=== PATIENT | male | born 1935 | race Caucasian/White ===

== ENCOUNTER 2017-10-26 10:09 | Inpatient (IN) | payer MEDICARE ==
[~2017-10-26] VITALS: Ht 190.5 cm; Wt 64.9 kg
[2017-10-26 10:52] LABS: BASOPHILS # (AUTO) 0.02 x10^3/uL (0-0.1); BASOPHILS % (AUTO) 0 % (0-1); EOSINOPHILS % (AUTO) 0 % (1-7); LYMPHOCYTES # (AUTO) 0.37 x10^3/uL (1-3.4); LYMPHOCYTES % (AUTO) 3 % (22-44); MD NO; MEAN CORPUSCULAR HEMOGLOBIN 31.6 pg (27.5-34.5); MEAN CORPUSCULAR HGB CONC 33.8 g/dL (33.2-36.2); MEAN CORPUSCULAR VOLUME 93.7 fL (81-97); MEAN PLATELET VOLUME 8.4 fL (7.4-10.4); MONOCYTES # (AUTO) 0.68 x10^3/uL (0.2-0.8); MONOCYTES % (AUTO) 5 % (2-9); NEUTROPHILS # (AUTO) 11.65 x10^3/uL (1.8-6.8); NEUTROPHILS % (AUTO) 92 % (42-75); PLATELET COUNT 204 x10^3/uL (130-400); RED BLOOD COUNT 4.19 x10^6/uL (4.38-5.82); RED CELL DISTRIBUTION WIDTH 13.3 % (9.4-14.8)
[2017-10-26 10:59] LABS: INTERNATIONAL NORMALIZED RATIO 1.03 (0.93-1.1); PROTHROMBIN TIME 10.7 Seconds (9.6-11.5)
[2017-10-26 11:03] LABS: ALANINE AMINOTRANSFERASE 21 U/L (12-78); ALBUMIN 2.6 g/dL (3.4-5.0); ANION GAP 7 mmol/L (5-15); CALCIUM 9.2 mg/dL (8.5-10.1); CHLORIDE 108 mmol/L (98-107); CREATININE 1.02 mg/dL (0.7-1.3)
[2017-10-26 11:08] LABS: ALKALINE PHOSPHATASE 45 U/L (45-117); BILIRUBIN,TOTAL 0.9 mg/dL (0.2-1.0)
[2017-10-26 11:15] LABS: TROPONIN I 0.317 ng/mL (0.000-0.045)
[2017-10-26] MEDS ORDERED: FUROSEMIDE 20 MG/2 ML IV ONE (11:30)
[2017-10-26] MEDS ORDERED: PIPERACILLIN/TAZO/PMX 4.5GM 100 ML IV ONE (11:30)
[2017-10-26] MEDS ORDERED: FUROSEMIDE 20 MG/2 ML ONE (11:34)
[2017-10-26] MEDS ORDERED: OMNIPAQUE 350 MG/ML, 100ML BOTTLE ONE (12:05)
[2017-10-26 13:59] VITALS: BP 153/83
[2017-10-26] MEDS ORDERED: ENOXAPARIN 40 MG/0.4 ML SQ SCH (14:30)
[2017-10-26] MEDS ORDERED: ENALAPRILAT 1.25 MG/ML, 2ML IVPush PRN (14:30)
[2017-10-26] MEDS ORDERED: LABETALOL 5MG/ML, 20ML IVPush PRN (14:30)
[2017-10-26] MEDS ORDERED: hydrALAzine 20 MG/ML, 1ML IVPush PRN (14:30)
[2017-10-26] MEDS: METOCLOPRAMIDE 5 MG/ML, 2ML IVPush SCH ×3 (14:30→21:41)
[2017-10-26] MEDS ORDERED: ACETAMINOPHEN 325 MG TABLET PO PRN (14:30)
[2017-10-26] MEDS ORDERED: NITROGLYCERIN 0.4 MG BOTTLE (25 TABS) SL PRN (14:30)
[2017-10-26] MEDS ORDERED: POTASSIUM CHLORIDE 40 MEQ in SODIUM CHLORIDE 0.9% 500 ML IV ONE (15:00)
[2017-10-26 15:09] LABS: TROPONIN I 0.323 ng/mL (0.000-0.045)
[2017-10-26] MEDS ORDERED: SUCR1TAB PO (16:07)
[2017-10-26] MEDS ORDERED: OMEP-110 PO (16:07)
[2017-10-26] MEDS ORDERED: ASPI-621 PO (16:07)
[2017-10-26] MEDS ORDERED: IRBE150T25 PO (16:07)
[2017-10-26] MEDS ORDERED: NIAC500C3 PO (16:07)
[2017-10-26] MEDS ORDERED: GLIP5TAB22 PO (16:07)
[2017-10-26] MEDS ORDERED: TRIA1TAB5 PO (16:07)
[2017-10-26] MEDS ORDERED: TERA5CAP3 PO (16:07)
[2017-10-26] MEDS ORDERED: VERA240T86 PO (16:07)
[2017-10-26] MEDS ORDERED: METO5TAB57 PO (16:19)
[2017-10-26 16:20] LABS: MICROSCOPIC AUTO
[2017-10-26 16:27] LABS: CULTURE INDICATED? NO
[2017-10-26] MEDS ORDERED: METOPROLOL TARTRATE 25 MG TABLET PO SCH (16:30)
[2017-10-26] MEDS ORDERED: MAGNESIUM SULFATE PMX 2GM/50ML 50 ML IV ONE (16:30)
[2017-10-26] MEDS: FUROSEMIDE 40 MG/4 ML IV SCH (17:12)
[2017-10-26] MEDS ORDERED: RIVAROXABAN 20 MG TABLET PO SCH (18:00)
[2017-10-26 20:12] VITALS: BP 193/87
[2017-10-26 20:27] LABS: TROPONIN I 0.319 ng/mL (0.000-0.045)
[2017-10-26] MEDS: POTASSIUM CHLORIDE 20 MEQ TAB.ER.PRT PO SCH ×2 (21:30→21:40)
[2017-10-26] MEDS ORDERED: VERAPAMIL ER 240MG TABLET.ER ONE (21:32)
[2017-10-26] MEDS: VERAPAMIL ER 120MG TABLET.ER PO SCH (21:37)
[2017-10-26] MEDS: GLIPizide ER 5 MG TABLET PO SCH (21:37)
[2017-10-26] MEDS: TERAZOSIN 5MG CAPSULE PO SCH (21:38)
[2017-10-26] MEDS: NIACIN 500 MG TABLET.ER PO SCH (21:38)
[2017-10-26] MEDS: IRBESARTAN 150 MG TABLET PO SCH (21:39)
[2017-10-26] MEDS: FAMOTIDINE 20 MG/2 ML IVPush SCH (21:41)
[2017-10-27] MEDS: POTASSIUM CHLORIDE 10% 40 MEQ/30 ML UDC PO SCH ×4 (00:21→20:06)
[2017-10-27 03:15] VITALS: BP 177/83
[2017-10-27 03:55] VITALS: BP 163/81
[2017-10-27 05:47] LABS: BASOPHILS # (AUTO) 0.02 x10^3/uL (0-0.1); BASOPHILS % (AUTO) 0 % (0-1); EOSINOPHILS % (AUTO) 0 % (1-7); LYMPHOCYTES # (AUTO) 0.66 x10^3/uL (1-3.4); LYMPHOCYTES % (AUTO) 7 % (22-44); MD NO; MEAN CORPUSCULAR HEMOGLOBIN 31.2 pg (27.5-34.5); MEAN CORPUSCULAR HGB CONC 33.5 g/dL (33.2-36.2); MEAN CORPUSCULAR VOLUME 93.1 fL (81-97); MEAN PLATELET VOLUME 8.7 fL (7.4-10.4); MONOCYTES # (AUTO) 0.68 x10^3/uL (0.2-0.8); MONOCYTES % (AUTO) 7 % (2-9); NEUTROPHILS # (AUTO) 7.78 x10^3/uL (1.8-6.8); NEUTROPHILS % (AUTO) 85 % (42-75); PLATELET COUNT 211 x10^3/uL (130-400); RED BLOOD COUNT 4.41 x10^6/uL (4.38-5.82); RED CELL DISTRIBUTION WIDTH 13.2 % (9.4-14.8)
[2017-10-27 05:55] LABS: ANION GAP 9 mmol/L (5-15); CALCIUM 9.1 mg/dL (8.5-10.1); CHLORIDE 103 mmol/L (98-107); CREATININE 1.09 mg/dL (0.7-1.3)
[2017-10-27] MEDS ORDERED: ASPIRIN 325 MG TABLET EC PO SCH (06:00)
[2017-10-27] MEDS: METOCLOPRAMIDE 5 MG/ML, 2ML IVPush SCH ×5 (06:01→20:06)
[2017-10-27 07:32] VITALS: BP 135/82
[2017-10-27] MEDS ORDERED: MAGNESIUM SULFATE 4 GM in SODIUM CHLORIDE 0.9% 100 ML IV ONE (08:00)
[2017-10-27] MEDS: FUROSEMIDE 40 MG/4 ML IV SCH (08:07)
[2017-10-27] MEDS: IRBESARTAN 150 MG TABLET PO SCH ×2 (08:07→20:06)
[2017-10-27] MEDS: VERAPAMIL ER 120MG TABLET.ER PO SCH ×2 (08:07→20:06)
[2017-10-27] MEDS: TRIAMTERENE/HCTZ 75/50MG TABLET PO SCH (08:08)
[2017-10-27] MEDS: METOPROLOL TARTRATE 25 MG TABLET PO SCH ×2 (08:08→20:06)
[2017-10-27] MEDS: TERAZOSIN 5MG CAPSULE PO SCH ×2 (08:08→20:05)
[2017-10-27] MEDS: GLIPizide ER 5 MG TABLET PO SCH ×2 (08:08→20:05)
[2017-10-27] MEDS: FAMOTIDINE 20 MG/2 ML IVPush SCH ×2 (08:28→20:05)
[2017-10-27] MEDS ORDERED: OMEPRAZOLE 20 MG CAPSULE.DR PO SCH (09:00)
[2017-10-27] MEDS: POTASSIUM CHLORIDE 40 MEQ in LACTATED RINGERS 1,000 ML IV SCH ×2 (09:04→22:14)
[2017-10-27] MEDS ORDERED: MAGNESIUM SULFATE PMX 4GM/100M 100 ML IVPB ONE (09:30)
[2017-10-27] MEDS: INSULIN LISPRO 100 UNITS/ML, PEN SQ-INSULIN SCH ×3 (11:00→21:26)
[2017-10-27 12:47] VITALS: BP 127/74
[2017-10-27 12:51] VITALS: BP 116/63
[2017-10-27 13:46] LABS: HEMOGLOBIN A1C 7.3 % (4.2-6.3)
[2017-10-27] MEDS: NIACIN 500 MG TABLET.ER PO SCH (20:05)
[2017-10-27] MEDS: ONDANSETRON 2MG/ML, 2ML IVPush PRN (20:06)
[2017-10-27 21:03] VITALS: BP 125/71
[2017-10-28 00:45] VITALS: BP 153/81
[2017-10-28 05:24] LABS: BASOPHILS # (AUTO) 0.05 x10^3/uL (0-0.1); BASOPHILS % (AUTO) 1 % (0-1); EOSINOPHILS # (AUTO) 0.03 x10^3/uL (0-0.4); EOSINOPHILS % (AUTO) 0 % (1-7); LYMPHOCYTES % (AUTO) 12 % (22-44); MD NO; MEAN CORPUSCULAR HEMOGLOBIN 30.8 pg (27.5-34.5); MEAN CORPUSCULAR HGB CONC 32.9 g/dL (33.2-36.2); MEAN CORPUSCULAR VOLUME 93.8 fL (81-97); MEAN PLATELET VOLUME 8.5 fL (7.4-10.4); MONOCYTES % (AUTO) 9 % (2-9); NEUTROPHILS # (AUTO) 5.47 x10^3/uL (1.8-6.8); NEUTROPHILS % (AUTO) 79 % (42-75); PLATELET COUNT 176 x10^3/uL (130-400); RED BLOOD COUNT 3.85 x10^6/uL (4.38-5.82); RED CELL DISTRIBUTION WIDTH 13.4 % (9.4-14.8)
[2017-10-28 05:30] LABS: ALBUMIN 2.2 g/dL (3.4-5.0); ANION GAP 5 mmol/L (5-15); CALCIUM 8.6 mg/dL (8.5-10.1); CHLORIDE 104 mmol/L (98-107)
[2017-10-28 05:40] LABS: ALANINE AMINOTRANSFERASE 18 U/L (12-78); ALKALINE PHOSPHATASE 34 U/L (45-117); BILIRUBIN,TOTAL 0.7 mg/dL (0.2-1.0); CREATININE 0.96 mg/dL (0.7-1.3); FREE T4 (FREE THYROXINE) 1.26 ng/dL (0.76-1.46); THYROID STIMULATING HORMONE 0.983 mIU/L (0.358-3.740); TOTAL PROTEIN 5.2 g/dL (6.4-8.2)
[2017-10-28] MEDS: METOCLOPRAMIDE 5 MG/ML, 2ML IVPush SCH ×5 (05:41→21:19)
[2017-10-28] MEDS: INSULIN LISPRO 100 UNITS/ML, PEN SQ-INSULIN SCH ×4 (07:00→20:34)
[2017-10-28 07:11] VITALS: BP 166/67
[2017-10-28] MEDS: GLIPizide ER 5 MG TABLET PO SCH ×2 (08:22→20:25)
[2017-10-28] MEDS: TRIAMTERENE/HCTZ 75/50MG TABLET PO SCH (08:22)
[2017-10-28] MEDS: VERAPAMIL ER 120MG TABLET.ER PO SCH ×2 (08:22→20:27)
[2017-10-28] MEDS: METOPROLOL TARTRATE 25 MG TABLET PO SCH ×2 (08:22→20:25)
[2017-10-28] MEDS: TERAZOSIN 5MG CAPSULE PO SCH ×2 (08:22→20:25)
[2017-10-28] MEDS: FAMOTIDINE 20 MG/2 ML IVPush SCH ×2 (08:22→20:24)
[2017-10-28] MEDS: IRBESARTAN 150 MG TABLET PO SCH ×2 (08:22→20:24)
[2017-10-28] MEDS: POTASSIUM CHLORIDE 40 MEQ in LACTATED RINGERS 1,000 ML IV SCH (11:06)
[2017-10-28 12:33] VITALS: BP 134/84
[2017-10-28 18:20] VITALS: BP 137/64
[2017-10-28] MEDS: NIACIN 500 MG TABLET.ER PO SCH (20:25)
[2017-10-28] MEDS ORDERED: PNEUMOCOCCAL 23 VACCINE IM-VACC ONE (23:45)
[2017-10-29] MEDS: POTASSIUM CHLORIDE 40 MEQ in LACTATED RINGERS 1,000 ML IV SCH (01:15)
[2017-10-29 03:50] VITALS: BP 93/56
[2017-10-29] MEDS: METOCLOPRAMIDE 5 MG/ML, 2ML IVPush SCH ×5 (05:12→22:00)
[2017-10-29 05:18] LABS: BASOPHILS % (AUTO) 0 % (0-1); CHLORIDE 103 mmol/L (98-107); EOSINOPHILS # (AUTO) 0.03 x10^3/uL (0-0.4); EOSINOPHILS % (AUTO) 1 % (1-7); LYMPHOCYTES # (AUTO) 0.67 x10^3/uL (1-3.4); LYMPHOCYTES % (AUTO) 10 % (22-44); MD NO; MEAN CORPUSCULAR HEMOGLOBIN 31.3 pg (27.5-34.5); MEAN CORPUSCULAR HGB CONC 33.2 g/dL (33.2-36.2); MEAN CORPUSCULAR VOLUME 94.2 fL (81-97); MONOCYTES # (AUTO) 0.39 x10^3/uL (0.2-0.8); MONOCYTES % (AUTO) 6 % (2-9); NEUTROPHILS % (AUTO) 83 % (42-75); PLATELET COUNT 169 x10^3/uL (130-400); RED BLOOD COUNT 3.84 x10^6/uL (4.38-5.82); RED CELL DISTRIBUTION WIDTH 13.4 % (9.4-14.8)
[2017-10-29 05:30] LABS: ALANINE AMINOTRANSFERASE 19 U/L (12-78); ALBUMIN 2.5 g/dL (3.4-5.0); ALKALINE PHOSPHATASE 40 U/L (45-117); ANION GAP 6 mmol/L (5-15); CALCIUM 8.8 mg/dL (8.5-10.1); CREATININE 0.98 mg/dL (0.7-1.3); TOTAL PROTEIN 5.5 g/dL (6.4-8.2)
[2017-10-29 06:41] VITALS: BP 112/67
[2017-10-29] MEDS: INSULIN LISPRO 100 UNITS/ML, PEN SQ-INSULIN SCH ×4 (07:00→21:17)
[2017-10-29] MEDS: TRIAMTERENE/HCTZ 75/50MG TABLET PO SCH (08:24)
[2017-10-29] MEDS: GLIPizide ER 5 MG TABLET PO SCH ×2 (08:24→21:17)
[2017-10-29] MEDS: IRBESARTAN 150 MG TABLET PO SCH ×2 (08:24→21:33)
[2017-10-29] MEDS: TERAZOSIN 5MG CAPSULE PO SCH ×2 (08:25→21:14)
[2017-10-29] MEDS: METOPROLOL TARTRATE 25 MG TABLET PO SCH ×2 (08:25→21:15)
[2017-10-29] MEDS: FAMOTIDINE 20 MG/2 ML IVPush SCH ×2 (08:25→21:10)
[2017-10-29] MEDS: VERAPAMIL ER 120MG TABLET.ER PO SCH ×2 (08:25→21:14)
[2017-10-29] MEDS ORDERED: PROCHLORPERAZINE 5 MG/ML, 2ML IVPush PRN (10:00)
[2017-10-29 12:27] VITALS: BP 116/69
[2017-10-29] MEDS: ONDANSETRON 2MG/ML, 2ML IVPush PRN (14:23)
[2017-10-29] MEDS ORDERED: OMNIPAQUE 350 MG/ML, 100ML BOTTLE ONE (17:09)
[2017-10-29 18:32] VITALS: BP 143/82
[2017-10-29] MEDS ORDERED: GLUCAGON 1 MG IM PRN (21:00)
[2017-10-29] MEDS: SODIUM CHLORIDE FLUSH 10ML SYR IVF SCH (21:00)
[2017-10-29] MEDS ORDERED: DEXTROSE 4 GM TAB.CHEW PO PRN (21:00)
[2017-10-29] MEDS ORDERED: DEXTROSE 4 GM TAB.CHEW ONE ×2 (21:05→21:07)
[2017-10-29] MEDS: NIACIN 500 MG TABLET.ER PO SCH (21:10)
[2017-10-29 21:13] VITALS: BP 135/70
[2017-10-29] MEDS: DEXTROSE 50%, 50ML SYRINGE IVPush PRN (21:36)
[2017-10-30 02:46] VITALS: BP 128/63
[2017-10-30] MEDS: POTASSIUM CHLORIDE 40 MEQ in LACTATED RINGERS 1,000 ML IV SCH (03:20)
[2017-10-30] MEDS: METOCLOPRAMIDE 5 MG/ML, 2ML IVPush SCH ×5 (05:34→23:25)
[2017-10-30] MEDS: INSULIN LISPRO 100 UNITS/ML, PEN SQ-INSULIN SCH (07:00)
[2017-10-30] MEDS: DEXTROSE 50%, 50ML SYRINGE IVPush PRN (07:26)
[2017-10-30] MEDS: SODIUM CHLORIDE FLUSH 10ML SYR IVF SCH ×2 (07:27→19:55)
[2017-10-30 07:43] VITALS: BP 134/56
[2017-10-30] MEDS: FAMOTIDINE 20 MG/2 ML IVPush SCH ×2 (08:14→23:24)
[2017-10-30] MEDS: METOPROLOL TARTRATE 25 MG TABLET PO SCH ×2 (08:15→23:54)
[2017-10-30] MEDS: VERAPAMIL ER 120MG TABLET.ER PO SCH ×2 (08:15→23:55)
[2017-10-30] MEDS: TERAZOSIN 5MG CAPSULE PO SCH ×2 (08:15→23:54)
[2017-10-30] MEDS: IRBESARTAN 150 MG TABLET PO SCH ×2 (08:15→23:55)
[2017-10-30] MEDS: NICOTINE 21 MG/24 HR PATCH.TD24 TD SCH (08:16)
[2017-10-30] MEDS: TRIAMTERENE/HCTZ 75/50MG TABLET PO SCH (08:16)
[2017-10-30 09:06] LABS: BASOPHILS # (AUTO) 0.06 x10^3/uL (0-0.1); BASOPHILS % (AUTO) 1 % (0-1); EOSINOPHILS # (AUTO) 0.02 x10^3/uL (0-0.4); EOSINOPHILS % (AUTO) 0 % (1-7); LYMPHOCYTES # (AUTO) 0.77 x10^3/uL (1-3.4); LYMPHOCYTES % (AUTO) 8 % (22-44); MD NO; MEAN CORPUSCULAR HEMOGLOBIN 31.2 pg (27.5-34.5); MEAN CORPUSCULAR HGB CONC 33.1 g/dL (33.2-36.2); MEAN CORPUSCULAR VOLUME 94.2 fL (81-97); MEAN PLATELET VOLUME 8.9 fL (7.4-10.4); MONOCYTES # (AUTO) 0.33 x10^3/uL (0.2-0.8); MONOCYTES % (AUTO) 4 % (2-9); NEUTROPHILS # (AUTO) 8.25 x10^3/uL (1.8-6.8); NEUTROPHILS % (AUTO) 88 % (42-75); PLATELET COUNT 181 x10^3/uL (130-400); RED BLOOD COUNT 3.97 x10^6/uL (4.38-5.82); RED CELL DISTRIBUTION WIDTH 13.6 % (9.4-14.8)
[2017-10-30 09:16] LABS: ANION GAP 3 mmol/L (5-15); CHLORIDE 100 mmol/L (98-107); CREATININE 0.98 mg/dL (0.7-1.3)
[2017-10-30] MEDS: POTASSIUM CHLORIDE 20 MEQ in DEXTROSE 5% 1,000 ML IV SCH (10:15)
[2017-10-30 13:06] VITALS: BP 149/71
[2017-10-30 18:32] VITALS: BP 114/70
[2017-10-30] MEDS: NIACIN 500 MG TABLET.ER PO SCH (23:25)
[2017-10-31] MEDS: POTASSIUM CHLORIDE 20 MEQ in DEXTROSE 5% 1,000 ML IV SCH (02:09)
[2017-10-31 03:25] VITALS: BP 150/78
[2017-10-31] MEDS: METOCLOPRAMIDE 5 MG/ML, 2ML IVPush SCH ×5 (06:21→21:40)
[2017-10-31] MEDS: FAMOTIDINE 20 MG/2 ML IVPush SCH ×2 (07:45→21:40)
[2017-10-31] MEDS: IRBESARTAN 150 MG TABLET PO SCH ×2 (07:45→21:57)
[2017-10-31] MEDS: TERAZOSIN 5MG CAPSULE PO SCH ×2 (07:45→21:57)
[2017-10-31] MEDS: TRIAMTERENE/HCTZ 75/50MG TABLET PO SCH (07:46)
[2017-10-31] MEDS: VERAPAMIL ER 120MG TABLET.ER PO SCH ×2 (07:46→21:56)
[2017-10-31] MEDS: NICOTINE 21 MG/24 HR PATCH.TD24 TD SCH (07:46)
[2017-10-31] MEDS: METOPROLOL TARTRATE 25 MG TABLET PO SCH ×2 (07:46→21:41)
[2017-10-31] MEDS: SODIUM CHLORIDE FLUSH 10ML SYR IVF SCH ×2 (07:46→21:40)
[2017-10-31 07:56] VITALS: BP 111/55
[2017-10-31 10:20] LABS: MEAN CORPUSCULAR HEMOGLOBIN 31.6 pg (27.5-34.5); MEAN CORPUSCULAR HGB CONC 33.3 g/dL (33.2-36.2); MEAN CORPUSCULAR VOLUME 94.9 fL (81-97); MEAN PLATELET VOLUME 9.1 fL (7.4-10.4); PLATELET COUNT 195 x10^3/uL (130-400)
[2017-10-31 10:25] LABS: ANION GAP 5 mmol/L (5-15); CALCIUM 8.8 mg/dL (8.5-10.1); CHLORIDE 95 mmol/L (98-107); CREATININE 1.04 mg/dL (0.7-1.3)
[2017-10-31 10:43] LABS: BASOPHILS # (AUTO) 0.02 x10^3/uL (0-0.1); BASOPHILS % (AUTO) 0 % (0-1); EOSINOPHILS # (AUTO) 0.05 x10^3/uL (0-0.4); EOSINOPHILS % (AUTO) 1 % (1-7); LYMPHOCYTES # (AUTO) 0.77 x10^3/uL (1-3.4); LYMPHOCYTES % (AUTO) 7 % (22-44); MD SCAN; MONOCYTES # (AUTO) 0.24 x10^3/uL (0.2-0.8); MONOCYTES % (AUTO) 2 % (2-9); NEUTROPHILS # (AUTO) 10.43 x10^3/uL (1.8-6.8); NEUTROPHILS % (AUTO) 91 % (42-75)
[2017-10-31] MEDS ORDERED: MAGNESIUM SULFATE 6 GM in SODIUM CHLORIDE 0.9% 150 ML IV ONE (11:00)
[2017-10-31] MEDS: POTASSIUM CHLORIDE 20 MEQ in DEXTROSE 10% 1,000 ML IV SCH (12:07)
[2017-10-31 14:23] VITALS: BP 109/60
[2017-10-31 18:48] VITALS: BP 105/52
[2017-10-31] MEDS: NIACIN 500 MG TABLET.ER PO SCH (21:41)
[2017-11-01] VITALS (14 sets, daily range): BP systolic 94–152; BP diastolic 50–73
[2017-11-01] MEDS: METOCLOPRAMIDE 5 MG/ML, 2ML IVPush SCH ×5 (05:22→21:20)
[2017-11-01 09:49] LABS: BASOPHILS # (AUTO) 0.03 x10^3/uL (0-0.1); BASOPHILS % (AUTO) 0 % (0-1); EOSINOPHILS # (AUTO) 0.01 x10^3/uL (0-0.4); EOSINOPHILS % (AUTO) 0 % (1-7); LYMPHOCYTES # (AUTO) 0.36 x10^3/uL (1-3.4); LYMPHOCYTES % (AUTO) 3 % (22-44); MD NO; MEAN CORPUSCULAR HEMOGLOBIN 30.7 pg (27.5-34.5); MEAN CORPUSCULAR HGB CONC 32.7 g/dL (33.2-36.2); MONOCYTES # (AUTO) 0.49 x10^3/uL (0.2-0.8); MONOCYTES % (AUTO) 3 % (2-9); NEUTROPHILS # (AUTO) 13.57 x10^3/uL (1.8-6.8); NEUTROPHILS % (AUTO) 94 % (42-75); PLATELET COUNT 155 x10^3/uL (130-400); RED BLOOD COUNT 3.92 x10^6/uL (4.38-5.82); RED CELL DISTRIBUTION WIDTH 12.7 % (9.4-14.8)
[2017-11-01 09:59] LABS: ALBUMIN 2.4 g/dL (3.4-5.0); ANION GAP 5 mmol/L (5-15); CALCIUM 8.5 mg/dL (8.5-10.1); CHLORIDE 94 mmol/L (98-107)
[2017-11-01 10:02] LABS: ALANINE AMINOTRANSFERASE 21 U/L (12-78); ALKALINE PHOSPHATASE 43 U/L (45-117); CREATININE 1.02 mg/dL (0.7-1.3); TOTAL PROTEIN 5.4 g/dL (6.4-8.2)
[2017-11-01] MEDS: VERAPAMIL ER 120MG TABLET.ER PO SCH ×2 (10:18→21:19)
[2017-11-01] MEDS: TERAZOSIN 5MG CAPSULE PO SCH ×2 (10:19→21:19)
[2017-11-01] MEDS: METOPROLOL TARTRATE 25 MG TABLET PO SCH ×2 (10:20→21:20)
[2017-11-01] MEDS: IRBESARTAN 150 MG TABLET PO SCH ×2 (10:21→21:21)
[2017-11-01] MEDS: TRIAMTERENE/HCTZ 75/50MG TABLET PO SCH (10:21)
[2017-11-01] MEDS: PANTOPROZOLE 40MG TABLET PO SCH (10:23)
[2017-11-01] MEDS: NICOTINE 21 MG/24 HR PATCH.TD24 TD SCH (10:24)
[2017-11-01] MEDS: SODIUM CHLORIDE FLUSH 10ML SYR IVF SCH ×2 (10:25→21:20)
[2017-11-01] MEDS: LIDODERM 5% PATCH TD SCH (17:47)
[2017-11-01] MEDS: POTASSIUM CHLORIDE 20 MEQ in DEXTROSE 10% 1,000 ML IV SCH (21:08)
[2017-11-01] MEDS: NIACIN 500 MG TABLET.ER PO SCH (21:59)
[2017-11-02 01:11] VITALS: BP 121/68
[2017-11-02 05:08] LABS: ANION GAP 7 mmol/L (5-15); CALCIUM 8.8 mg/dL (8.5-10.1); CHLORIDE 96 mmol/L (98-107)
[2017-11-02 05:15] LABS: BASOPHILS # (AUTO) 0.02 x10^3/uL (0-0.1); BASOPHILS % (AUTO) 0 % (0-1); EOSINOPHILS # (AUTO) 0.02 x10^3/uL (0-0.4); EOSINOPHILS % (AUTO) 0 % (1-7); LYMPHOCYTES # (AUTO) 0.74 x10^3/uL (1-3.4); LYMPHOCYTES % (AUTO) 7 % (22-44); MD NO; MEAN CORPUSCULAR HEMOGLOBIN 30.9 pg (27.5-34.5); MEAN CORPUSCULAR VOLUME 93.4 fL (81-97); MEAN PLATELET VOLUME 9.4 fL (7.4-10.4); MONOCYTES # (AUTO) 0.76 x10^3/uL (0.2-0.8); MONOCYTES % (AUTO) 7 % (2-9); NEUTROPHILS # (AUTO) 9.81 x10^3/uL (1.8-6.8); NEUTROPHILS % (AUTO) 86 % (42-75); PLATELET COUNT 167 x10^3/uL (130-400); RED BLOOD COUNT 3.91 x10^6/uL (4.38-5.82); RED CELL DISTRIBUTION WIDTH 12.6 % (9.4-14.8)
[2017-11-02 05:32] VITALS: BP 112/50
[2017-11-02] MEDS: METOCLOPRAMIDE 5 MG/ML, 2ML IVPush SCH ×4 (05:34→20:27)
[2017-11-02 08:10] VITALS: BP 125/62
[2017-11-02] MEDS: IRBESARTAN 150 MG TABLET PO SCH ×3 (08:30→20:31)
[2017-11-02] MEDS: TRIAMTERENE/HCTZ 75/50MG TABLET PO SCH (08:44)
[2017-11-02] MEDS: VERAPAMIL ER 120MG TABLET.ER PO SCH ×3 (08:44→20:31)
[2017-11-02] MEDS: TERAZOSIN 5MG CAPSULE PO SCH ×2 (08:45→20:30)
[2017-11-02] MEDS: PANTOPROZOLE 40MG TABLET PO SCH (08:46)
[2017-11-02] MEDS: NICOTINE 21 MG/24 HR PATCH.TD24 TD SCH (08:46)
[2017-11-02] MEDS: SODIUM CHLORIDE FLUSH 10ML SYR IVF SCH ×2 (08:47→20:28)
[2017-11-02] MEDS: METOPROLOL TARTRATE 25 MG TABLET PO SCH ×3 (09:00→20:30)
[2017-11-02 14:15] VITALS: BP 134/61
[2017-11-02] MEDS: LIDODERM 5% PATCH TD SCH (17:43)
[2017-11-02] MEDS: POTASSIUM CHLORIDE 20 MEQ in DEXTROSE 10% 1,000 ML IV SCH (19:52)
[2017-11-02] MEDS: NIACIN 500 MG TABLET.ER PO SCH (20:29)
[2017-11-02 20:35] VITALS: BP 119/68
[2017-11-03] MEDS: METOCLOPRAMIDE 5 MG/ML, 2ML IVPush SCH ×3 (00:30→09:23)
[2017-11-03 03:02] VITALS: BP 134/63
[2017-11-03 05:30] LABS: ALBUMIN 2.2 g/dL (3.4-5.0); ANION GAP 6 mmol/L (5-15); CALCIUM 8.8 mg/dL (8.5-10.1); CHLORIDE 97 mmol/L (98-107)
[2017-11-03 05:34] LABS: ALANINE AMINOTRANSFERASE 16 U/L (12-78); ALKALINE PHOSPHATASE 44 U/L (45-117); BILIRUBIN,TOTAL 0.8 mg/dL (0.2-1.0); CREATININE 0.95 mg/dL (0.7-1.3); TOTAL PROTEIN 5.2 g/dL (6.4-8.2)
[2017-11-03 07:35] VITALS: BP 130/67
[2017-11-03] MEDS: PANTOPROZOLE 40MG TABLET PO SCH (09:24)
[2017-11-03] MEDS: TRIAMTERENE/HCTZ 75/50MG TABLET PO SCH (09:24)
[2017-11-03] MEDS: TERAZOSIN 5MG CAPSULE PO SCH (09:24)
[2017-11-03] MEDS: NICOTINE 21 MG/24 HR PATCH.TD24 TD SCH (09:25)
[2017-11-03] MEDS: SODIUM CHLORIDE FLUSH 10ML SYR IVF SCH (09:26)
[2017-11-03] MEDS ORDERED: DEXT50DI3 IVPush (09:36)
[2017-11-03] MEDS ORDERED: METO5TAB57 IV (09:36)
[2017-11-03] MEDS ORDERED: PANT40TA5 PO (09:42)
[2017-11-03 11:02] LABS: ANION GAP 7 mmol/L (5-15); CALCIUM 8.6 mg/dL (8.5-10.1); CHLORIDE 97 mmol/L (98-107); CREATININE 1.05 mg/dL (0.7-1.3)
[2017-11-03 11:09] LABS: BASOPHILS % (AUTO) 0 % (0-1); EOSINOPHILS # (AUTO) 0.02 x10^3/uL (0-0.4); EOSINOPHILS % (AUTO) 0 % (1-7); LYMPHOCYTES # (AUTO) 0.51 x10^3/uL (1-3.4); LYMPHOCYTES % (AUTO) 6 % (22-44); MD NO; MEAN CORPUSCULAR HEMOGLOBIN 31.7 pg (27.5-34.5); MEAN CORPUSCULAR HGB CONC 33.5 g/dL (33.2-36.2); MEAN CORPUSCULAR VOLUME 94.8 fL (81-97); MEAN PLATELET VOLUME 8.9 fL (7.4-10.4); MONOCYTES # (AUTO) 0.71 x10^3/uL (0.2-0.8); MONOCYTES % (AUTO) 9 % (2-9); NEUTROPHILS # (AUTO) 6.98 x10^3/uL (1.8-6.8); NEUTROPHILS % (AUTO) 85 % (42-75); PLATELET COUNT 170 x10^3/uL (130-400); RED BLOOD COUNT 3.69 x10^6/uL (4.38-5.82); RED CELL DISTRIBUTION WIDTH 12.8 % (9.4-14.8)
[2017-11-03] MEDS: POTASSIUM CHLORIDE 20 MEQ in DEXTROSE 10% 1,000 ML IV SCH (11:30)
== END 2017-11-03 14:28 | DRG 291 ==
LOC: ED 11:03 → EDIP 12:32 → 5SO 13:55
PROVIDERS: ADMIT Hospitalist; ATTEND Hospitalist
DX: I11.0 Hypertensive heart disease with heart failure (principal); J96.21 Acute and chronic respiratory failure with hypoxia; E43 Unspecified severe protein-calorie malnutrition; E87.4 Mixed disorder of acid-base balance; E87.0 Hyperosmolality and hypernatremia; J81.1 Chronic pulmonary edema; J90 Pleural effusion, not elsewhere classified; Z68.1 Body mass index [BMI] 19.9 or less, adult; E11.43 Type 2 diabetes mellitus with diabetic autonomic (poly)neuropathy; I50.33 Acute on chronic diastolic (congestive) heart failure; K31.84 Gastroparesis; R62.7 Adult failure to thrive; E11.649 Type 2 diabetes mellitus with hypoglycemia without coma; E11.65 Type 2 diabetes mellitus with hyperglycemia; E78.00 Pure hypercholesterolemia, unspecified; E83.42 Hypomagnesemia; E86.0 Dehydration; E87.6 Hypokalemia; F17.210 Nicotine dependence, cigarettes, uncomplicated; I10 Essential (primary) hypertension; I49.3 Ventricular premature depolarization; J44.9 Chronic obstructive pulmonary disease, unspecified; K21.9 Gastro-esophageal reflux disease without esophagitis; Z80.0 Family history of malignant neoplasm of digestive organs; Z80.2 Family history of malignant neoplasm of other respiratory and intrathoracic organs; Z80.42 Family history of malignant neoplasm of prostate; Z80.8 Family history of malignant neoplasm of other organs or systems; Z82.49 Family history of ischemic heart disease and other diseases of the circulatory system; Z83.3 Family history of diabetes mellitus; Z85.46 Personal history of malignant neoplasm of prostate; Z86.010 Personal history of colon polyps; Z92.3 Personal history of irradiation; Z23 Encounter for immunization
CPT/HCPCS: 36415; 71045; 71275; 74177; 80048; 80053; 81001; 82088; 82962; 83036; 83605; 83690; 83735; 83880; 84100; 84132; 84145; 84244; 84439; 84443; 84484; 85025; 85610; 87040; 90732; 93005; 93306; 96365; 99285; J1650; J1940; J2405; J2543; J3475; J3480; J7070; Q9967; J1815; J2765; J7040; J7120; S0028